=== PATIENT | male | born 1935 | race Two or more races ===

== ENCOUNTER 2018-08-21 10:59 | Outpatient (CLI) | payer OTHER | END 2018-08-21 11:05 | disposition home or self-care (01) | LOC: RAD 10:59 | DX: M99.01 Segmental and somatic dysfunction of cervical region (principal); M99.02 Segmental and somatic dysfunction of thoracic region; M99.03 Segmental and somatic dysfunction of lumbar region; M99.05 Segmental and somatic dysfunction of pelvic region ==

== ENCOUNTER 2018-09-02 07:58 | Outpatient (CLI) | payer OTHER | END 2018-09-02 08:11 | disposition home or self-care (01) | LOC: SONOGRAMA 07:58 → MAMO-SONO 08:15 | DX: I11.9 Hypertensive heart disease without heart failure (principal) ==

== ENCOUNTER 2018-10-08 10:30 | Outpatient (CLI) | payer OTHER | END 2018-10-08 10:38 | disposition home or self-care (01) | LOC: TOM 10:30 | DX: N20.0 Calculus of kidney (principal) ==

== ENCOUNTER → 2022-04-24 | Outpatient (CLI) | payer OTHER | END | disposition home or self-care (01) | LOC: MRI 13:51 | PROVIDERS: ATTEND Physical Medicine & Rehabilitation | DX: M54.59 Other low back pain (principal) | CPT/HCPCS: 72148 ==

== ENCOUNTER 2022-07-11 13:37 | Outpatient (CLI) | payer OTHER | END 2022-07-11 13:48 | disposition home or self-care (01) | LOC: RAD 13:37 | PROVIDERS: ATTEND Physical Medicine & Rehabilitation | DX: M48.07 Spinal stenosis, lumbosacral region (principal) ==

== ENCOUNTER 2023-04-29 13:57 | Outpatient (CLI) | payer OTHER | END 2023-04-29 14:01 | disposition home or self-care (01) | LOC: RAD 13:57 | PROVIDERS: ATTEND Orthopaedic Surgery Sports Medicine | DX: M25.512 Pain in left shoulder (principal) ==

== ENCOUNTER 2023-12-05 14:42 | Outpatient (CLI) | payer OTHER | END 2023-12-05 14:46 | disposition home or self-care (01) | LOC: RAD 14:42 | PROVIDERS: ATTEND Physical Medicine & Rehabilitation | DX: M54.2 Cervicalgia (principal); M54.6 Pain in thoracic spine ==